=== PATIENT | male | born 1960 | race Caucasian/White ===

== ENCOUNTER 2020-05-06 18:08 | Inpatient (IN) | payer OTHER, SELFPAY ==
--- NOTE | 2020-05-06 18:51 | RAD REPORT ---
EXAM DESCRIPTION: RAD - Chest Single View - 05/06/2020 6:43 pm CLINICAL HISTORY: ams, history of DVT COMPARISON: None TECHNIQUE: AP portable chest image was obtained 05/06/2020 6:43 pm . FINDINGS: No peripheral mass or consolidation. Interstitial pattern is prominent with the baseline f or the patient unknown. Bilateral costophrenic angle blunting is present. Trachea is midline. Heart a nd vasculature are normal. No pneumothorax. No acute bony abnormality seen. No acute aortic findings suspected. IMPRESSION: Baseline chest exam shows a prominent interstitial pattern that could be patient's basel ine lung parenchymal pattern or a mild edema or mild viral infiltrate. No focal consolidation to suspect bacterial pneumonia. Small bilateral pleural effusions versus pleural scarring.
--- NOTE | 2020-05-06 18:54 | RAD REPORT ---
EXAM DESCRIPTION: CT - Head Brain Wo Cont - 05/06/2020 6:44 pm CLINICAL HISTORY: SLURRED SPEECH COMPARISON: No comparisons TECHNIQUE: Axial 5 mm thick images of the head were obtained without IV contrast. All CT scans are performed using dose optimization technique as appropriate and may include automated exposure control or mA/KV adjustment according to patient size. FINDINGS: No intracranial hemorrhage, mass, edema or shift of mid-line structures. No acute infarcti on changes seen. No cortical edema or sulcal effacement. A 3-4 centimeter area of encephalomalacia is present in the right subfrontal region. This could be from old trauma or an ischemic injury. No acut e component suspected. Ventricles are normal. No significant atrophy or diffuse chronic ischemic noble ges seen. Mastoid air cells and visualized portions of the paranasal sinuses are clear. No acute bony findings. 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
[2020-05-06 19:24] LABS: Protime INR 1.04
[2020-05-06 19:35] LABS: Absolute Lymphocytes (CBC) 1.1 K/uL (0.7-4.9); Basophils % 0.7 % (0-1.3); Hematocrit 33.6 % (39.6-49.0); Lymphocytes % 23.7 % (15.3-44.8); MPV 8.2 fL (7.6-11.3); RBC Red Blood Cell Count 3.76 M/uL (4.33-5.43)
[2020-05-06 19:36] LABS: ALT/SGPT 20 U/L (12-78); AST/SGOT 28 U/L (15-37); Albumin 3.1 g/dL (3.4-5.0); Alkaline Phosphatase 67 U/L (45-117); BUN Blood Urea Nitrogen 14 mg/dL (7-18); Bicarbonate 31 mmol/L (21-32); Bilirubin Direct 0.1 mg/dL (0-0.2); Bilirubin Total 0.5 mg/dL (0.2-1.0); Glucose Level 84 mg/dL (74-106); NT PRO-BNP 358 pg/mL (<125); Potassium 3.5 mmol/L (3.5-5.1); Protein, Total 6.6 g/dL (6.4-8.2); Sodium Level 143 mmol/L (136-145); Troponin (Emerg Dept Use Only) < 0.02 ng/mL (0.0-0.045)
--- NOTE | 2020-05-06 19:52 | EDPHYS ---
Physician Documentation [facility] Name: Johnatohn Bush Age: 59 yrs Sex: Male : 1960 Arrival Date: 05/06/2020 Time: 18:17 Bed 18 Private MD: ED Physician Charles Cheema HPI: 05/06 18:24 This 59 yrs old Male presents to ER via EMS with complaints of S/S of jmm Possible Stroke. 18:24 The patient's problem is reported as slurred speech. Onset: The symptoms/episode jmm began/occurred 1 week(s) ago. Duration: The episode is continuous. The symptoms are alleviated by nothing. The symptoms are aggravated by nothing. Associated signs and symptoms: Pertinent negatives: abdominal pain, chest pain. The patient has not experienced similar symptoms in the past. Patient complaints of left lower leg pain, with increased swelling over the past week. Patient states he was prescribed eliquis for previous DVT but unable to afford the past 2 months. . Historical: - Allergies: 18:26 No Known Allergies; jd3 - Home Meds: 18:26 Ambien Oral [Active]; Oxycodone HCl Oral [Active]; Xanax Oral [Active]; unknown blood jd3 pressure [Active]; - PMHx: 18:26 Hypertension; Anxiety; jd3 - Immunization history:: Adult Immunizations up to date. - Social history:: Smoking status: Patient reports the use of cigarette tobacco products, smokes one pack cigarettes per day. ROS: 18:24 Constitutional: Negative for fever, chills, and weight loss, Cardiovascular: Negative jmm for chest pain, palpitations, and edema, Respiratory: Negative for shortness of breath, cough, wheezing, and pleuritic chest pain. 18:24 MS/extremity: Positive for swelling. 18:24 Neuro: Positive for altered mental status. 18:24 All other systems are negative. Exam: 18:24 Radiologist reports: negative jmm 18:24 Constitutional: This is a well developed, well nourished patient who is awake, alert, and in no acute distress. Head/Face: atraumatic. Eyes: EOMI, no conjunctival erythema appreciated ENT: Moist Mucus Membranes Neck: Trachea midline, Supple Chest/axilla: Normal chest wall appearance and motion. Cardiovascular: Regular rate and rhythm. No edema appreciated Respiratory: Normal respirations, no respiratory distress appreciated Abdomen/GI: Non distended, soft Back: Normal ROM Skin: General appearance color normal 18:24 Musculoskeletal/extremity: DVT Exam: pain, that is moderate, of the left leg, swelling, that is marked, of the left leg, tenderness, that is marked, of the left leg. 18:24 Neuro: Orientation: is normal, Mentation: is normal, Memory: is normal, Cranial nerves: Speech is slurred. 18:24 Psych: Behavior/mood is pleasant, cooperative. Vital Signs: 18:26 BP 126 / 74; Pulse 88; Resp 18 S; Temp 97.9(TE); Pulse Ox 97% on R/A; Weight 102.97 kg jd3 (R); Height 5 ft. 11 in. (180.34 cm) (R); Pain 5/10; 18:26 Body Mass Index 31.66 (102.97 kg, 180.34 cm) jd3 NIH Stroke Scale Scores: 18:29 NIHSS Score: 1 jd3 MDM: 18:24 Patient medically screened. [facility] 19:49 Data reviewed: vital signs, nurses notes. Counseling: I had a detailed discussion with humble the patient and/or guardian regarding: the historical points, exam findings, and any diagnostic results supporting the discharge/admit diagnosis, lab results, radiology results, the need for further work-up and treatment in the hospital. ED course: I discussed the patient with Manny whom accepted the patient to Dr. Cheema's service. . 02 18:25 Order name: Basic Metabolic Panel; Complete Time: 19:39 [facility] 05/06 18:25 Order name: CBC with Diff; Complete Time: 19:39 [facility] 05/06 18:25 Order name: LFT's; Complete Time: 19:39 [facility] 05/06 18:25 Order name: Magnesium; Complete Time: 19:39 [facility] 05/06 18:25 Order name: NT PRO-BNP; Complete Time: 19:39 [facility] 05/06 18:25 Order name: Troponin (emerg Dept Use Only); Complete Time: 19:39 [facility] 05/06 18:26 Order name: Acetaminophen; Complete Time: 19:39 [facility] 05/06 18:26 Order name: ETOH Level; Complete Time: 19:39 [facility] 05/06 18:26 Order name: Ptt, Activated; Complete Time: 19:45 [facility] 05/06 18:26 Order name: Salicylate; Complete Time: 20:01 [facility] 05/06 18:26 Order name: Urine Drug Screen [facility] 05/06 19:13 Order name: Protime (+INR); Complete Time: 19:45 EDMS 05/06 19:15 Order name: COVID-19 : Document "Date of Symptom Onset" if Symptomatic. iw 05/06 18:25 Order name: XRAY Chest (1 view); Complete Time: 18:58 [facility] 05/06 18:25 Order name: EKG; Complete Time: 18:26 [facility] 05/06 18:25 Order name: Cardiac monitoring [facility] 05/06 18:25 Order name: EKG - Nurse/Tech [facility] 05/06 18:25 Order name: IV Saline Lock; Complete Time: 19:07 [facility] 05/06 18:25 Order name: Labs collected and sent; Complete Time: 19:07 [facility] 05/06 18:25 Order name: O2 Per Protocol; Complete Time: 18:29 [facility] 05/06 18:25 Order name: O2 Sat Monitoring; Complete Time: 18:29 [facility] 05/06 18:25 Order name: US Extremity Venous Unilateral Ltd; Complete Time: 20:16 [facility] 05/06 18:25 Order name: CT Head Brain wo Cont; Complete Time: 18:59 [facility] 05/06 20:31 Order name: Swallow Screen; Complete Time: 22:04 la1 05/06 21:57 Order name: SARS-COV-2 RT PCR EDMS Administered Medications: 21:24 Drug: Aspirin Chewable Tablet 324 mg Route: PO; ll2 23:25 Follow up: Response: No adverse reaction ll2 22:04 Drug: Lovenox 1 mg/kg Route: Sub-Q; Site: left lower abdomen; ll2 23:25 Follow up: Response: No adverse reaction ll2 Disposition: 05/07 07:03 Co-signature as Attending Physician, Charles Cheema MD. rn Disposition: 05/06/20 19:51 Hospitalization ordered by Noman Cheema for Observation. Preliminary diagnosis are Altered mental status, unspecified, Left Popliteal Deep Vein Thrombosis. - Bed requested for Telemetry/MedSurg (observation). - Status is Observation. ea - Condition is Stable. - Problem is new. - Symptoms are unchanged. NIH Stroke Scale - NIH Stroke Score Date: 05/06/2020 Time: 18:29 Total Score = 1 1a. Level of Consciousness (LOC) - 0(Alert) 1b. Level of Consciousness (LOC) (Year \\T\\ Age) - 0(Both) 1c. LOC Commands (Open \\T\\ Closes Eyes/Furnace Mechanic) - 0(Both) 2. Best Gaze (Lateral Gaze Paresis) - 0(Normal) 3. Visual Field Loss - 0(No visual loss) 4. Facial Palsy - 0(Normal) 5a. Left Arm: Motor (10-second hold) - 0(No drift) 5b. Right Arm: Motor (10-second hold) - 0(No drift) 6a. Left Leg: Motor (5-second hold - always test supine) - 0(No drift) 6b. Right Leg: Motor (5-second hold - always test supine) - 0(No drift) 7. Limb Ataxia (finger/nose \\T\\ heel/carr - test with eyes open) - 0(Absent) 8. Sensory Loss (pinprick arms/legs/face) - 0(Normal) 9. Best Language: Aphasia (description/naming/reading) - 0(No aphasia) 10. Dysarthria (speech clarity - read or repeat words) - 1(Mild to Moderate) 11. Extinction and Inattention (visual/tactile/auditory/spatial/personal) - 0(No abnormality) Initials: jd3 Signatures: Dispatcher [employer] EDKS Paxton Peters PA PA jmm Nieto, Roman, MD MD rn Radha, Manny, FILTER SCREEN CLEANER-C FILTER SCREEN CLEANER-Cla1 Dilcia Hu RN Xander Coello ea, RN RN jd3 Sol Kumar RN RN ll2 Romaine Darden tt3 Corrections: (The following items were deleted from the chart) 05/06 19:12 18:26 PROTIME (+INR)+COAG.LAB.BRZ ordered. [facility] EDKS 22:36 19:51 Hospitalization Ordered by Noman Cheema MD for Observation. Preliminary tt3 diagnosis is Altered mental status, unspecified; Left Popliteal Deep Vein Thrombosis. Bed requested for Telemetry/MedSurg (observation). Status is Observation. Condition is Stable. Problem is new. Symptoms are unchanged. alex 23:32 22:36 05/06/2020 19:51 Hospitalization Ordered by Noman Cheema MD for ea Observation. Preliminary diagnosis is Altered mental status, unspecified; Left Popliteal Deep Vein Thrombosis. Bed requested for Telemetry/MedSurg (observation). Status is Observation. Condition is Stable. Problem is new. Symptoms are unchanged. tt3
--- NOTE | 2020-05-06 19:52 | ER ---
Nurse's Notes [facility] Name: Johnathon Bush Age: 59 yrs Sex: Male : 1960 Arrival Date: 05/06/2020 Time: 18:17 Bed 18 Private MD: Diagnosis: Altered mental status, unspecified;Left Popliteal Deep Vein Thrombosis Presentation: 05/06 18:17 Chief complaint: EMS states: "the family called us for slurred speech and swelling left jd3 leg X 1 week. history of blood clots.". Coronavirus screen: At this time, the client does not indicate any symptoms associated with coronavirus-19. Ebola Screen: Patient negative for fever greater than or equal to 101.5 degrees Fahrenheit, and additional compatible Ebola Virus Disease symptoms. Initial Sepsis Screen: Does the patient meet any 2 criteria? No. Patient's initial sepsis screen is negative. Does the patient have a suspected source of infection? No. Patient's initial sepsis screen is negative. Risk Assessment: Do you want to hurt yourself or someone else? Patient reports no desire to harm self or others. Onset of symptoms was April 29, 2020. 18:17 Method Of Arrival: EMS: [facility] jd3 18:17 Acuity: ALEKSEY 2 jd3 18:24 Care prior to arrival: IV initiated. 18 GA, in the left antecubital area. jd3 Historical: - Allergies: 18:26 No Known Allergies; jd3 - Home Meds: 18:26 Ambien Oral [Active]; Oxycodone HCl Oral [Active]; Xanax Oral [Active]; unknown blood jd3 pressure [Active]; - PMHx: 18:26 Hypertension; Anxiety; jd3 - Immunization history:: Adult Immunizations up to date. - Social history:: Smoking status: Patient reports the use of cigarette tobacco products, smokes one pack cigarettes per day. Screenin:28 Abuse screen: Denies threats or abuse. Nutritional screening: No deficits noted. jd3 Tuberculosis screening: No symptoms or risk factors identified. Fall Risk Ambulatory Aid- None/Bed Rest/Nurse Assist (0 pts). Gait- Normal/Bed Rest/Wheelchair (0 pts) Mental Status- Oriented to own ability (0 pts). Total Del Castillo Fall Scale indicates No Risk (0-24 pts). 18:29 VAN Screening: Arm Drift: Patient shows no arm weakness. Patient is VAN negative. The jd3 patient has not been NPO before screening. The patient is currently on the following diet: regular diet. Assessment: 18:27 General: Appears in no apparent distress. comfortable, Behavior is calm, cooperative, jd3 appropriate for age. Pain: Complains of pain in head and left leg Quality of pain is described as aching, pressure. Neuro: Level of Consciousness is awake, alert, obeys commands, Oriented to person, place, time, situation, Data Migration Lead are equal bilaterally Moves all extremities. Full function Speech is slurred, Facial symmetry appears normal, Intact. Cardiovascular: Denies chest pain, Capillary refill < 3 seconds Patient's skin is warm and dry. Respiratory: Airway is patent Respiratory effort is even, unlabored, Respiratory pattern is regular, symmetrical, Denies cough, shortness of breath. GI: No signs and/or symptoms were reported involving the gastrointestinal system. : No signs and/or symptoms were reported regarding the genitourinary system. EENT: No signs and/or symptoms were reported regarding the EENT system. Derm: Skin is intact, Skin is dry, Skin is normal, Skin temperature is warm. Musculoskeletal: Circulation, motion, and sensation intact. Range of motion: intact in all extremities, Swelling present in left leg. 19:30 Reassessment: Patient and/or family updated on plan of care and expected duration. Pain ll2 level reassessed. Patient is alert, oriented x 3, equal unlabored respirations, skin warm/dry/pink. 20:35 Reassessment: No changes from previously documented assessment. Patient and/or family ll2 updated on plan of care and expected duration. Pain level reassessed. Patient is alert, oriented x 3, equal unlabored respirations, skin warm/dry/pink. 21:35 Reassessment: Patient and/or family updated on plan of care and expected duration. Pain ll2 level reassessed. Patient is alert, oriented x 3, equal unlabored respirations, skin warm/dry/pink. 22:58 Reassessment: report called to nguyễn. [facility] Vital Signs: 18:26 BP 126 / 74; Pulse 88; Resp 18 S; Temp 97.9(TE); Pulse Ox 97% on R/A; Weight 102.97 kg jd3 (R); Height 5 ft. 11 in. (180.34 cm) (R); Pain 5/10; 18:26 Body Mass Index 31.66 (102.97 kg, 180.34 cm) [facility] NIH Stroke Scale Scores: 18:29 NIHSS Score: 1 [facility] ED Course: 18:17 Patient arrived in ED. [facility] 18:23 Paxton Peters PA is PHCP. [facility] 18:23 Charles Cheema MD is Attending Physician. m 18:24 Triage completed. jd3 18:27 Arm band placed on. jd3 18:28 Patient has correct armband on for positive identification. Bed in low position. Call [facility] light in reach. Side rails up X2. carpentry teacher on. Pulse ox on. NIBP on. 18:43 XRAY Chest (1 view) In Process Unspecified. EDMS 18:44 CT Head Brain wo Cont In Process Unspecified. EDMS 19:31 Sol Kumar, JUAN DANIEL is Primary Nurse. ll2 19:50 Noman Cheema MD is Hospitalizing Provider. jmm 19:52 US Extremity Venous Unilateral Ltd In Process Unspecified. EDMS Administered Medications: 21:24 Drug: Aspirin Chewable Tablet 324 mg Route: PO; ll2 23:25 Follow up: Response: No adverse reaction ll2 22:04 Drug: Lovenox 1 mg/kg Route: Sub-Q; Site: left lower abdomen; ll2 23:25 Follow up: Response: No adverse reaction ll2 Outcome: 19:51 Decision to Hospitalize by Provider. jmm 23:32 Patient left the ED. NIH Stroke Scale - NIH Stroke Score Date: 05/06/2020 Time: 18:29 Total Score = 1 1a. Level of Consciousness (LOC) - 0(Alert) 1b. Level of Consciousness (LOC) (Year \\T\\ Age) - 0(Both) 1c. LOC Commands (Open \\T\\ Closes Eyes/Stock Clerk) - 0(Both) 2. Best Gaze (Lateral Gaze Paresis) - 0(Normal) 3. Visual Field Loss - 0(No visual loss) 4. Facial Palsy - 0(Normal) 5a. Left Arm: Motor (10-second hold) - 0(No drift) 5b. Right Arm: Motor (10-second hold) - 0(No drift) 6a. Left Leg: Motor (5-second hold - always test supine) - 0(No drift) 6b. Right Leg: Motor (5-second hold - always test supine) - 0(No drift) 7. Limb Ataxia (finger/nose \\T\\ heel/carr - test with eyes open) - 0(Absent) 8. Sensory Loss (pinprick arms/legs/face) - 0(Normal) 9. Best Language: Aphasia (description/naming/reading) - 0(No aphasia) 10. Dysarthria (speech clarity - read or repeat words) - 1(Mild to Moderate) 11. Extinction and Inattention (visual/tactile/auditory/spatial/personal) - 0(No abnormality) Initials: jd3 Signatures: Dispatcher [employer] Paxton Dunaway PA PA jmm Antunez, Elena, RN Xadner Coello ea, RN RN jd3 Sol Kumar RN RN ll2
[2020-05-06] MEDS ORDERED: ASPIRIN 81 MG CHEWABLE TABLET ONE ×3 (19:59→21:50)
--- NOTE | 2020-05-06 20:14 | RAD REPORT ---
EXAM DESCRIPTION: US - Extremity Venous Uni Ltd - 05/06/2020 7:52 pm CLINICAL HISTORY: SWELLING, leg pain COMPARISON: None. TECHNIQUE: Real-time sonographic evaluation of the left lower extremity deep venous system was perfo rmed. FINDINGS: Normal compressibility, flow augmentation, phasic flow and spontaneous flow are identified in the left lower extremity common femoral and proximal portions of the superficial femoral vein. Ec hogenic material with and loss of compression noted in the distal left femoral vein popliteal vein. P osterior tibial vein is patent. . Edema is seen in the subcutaneous fatty tissues of the lower left l eg. Preliminary findings were provided at the time of the study. IMPRESSION: Acute deep venous thrombosis in the left lower extremity involving the distal femoral ve in and popliteal vein.
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
[2020-05-06] MEDS ORDERED: ENOXAPARIN 100 MG/ML SYR SQ ONE (21:49)
[2020-05-06] MEDS ORDERED: ONDANSETRON 4 MG/2 ML VIAL IV PRN (23:57)
[2020-05-07 00:20] VITALS: BMI 31.6
[2020-05-07] MEDS: ENOXAPARIN 100 MG/ML SYR SQ SCH ×3 (00:30→20:28)
[2020-05-07] MEDS: NICOTINE 21 MG/PAT TD SCH (00:31)
[2020-05-07] MEDS: NA CHLORIDE 0.9% 1,000 ML IV SCH ×3 (00:32→14:31)
[2020-05-07] MEDS: MELATONIN 5 MG TABLET PO PRN ×2 (01:37→20:28)
[2020-05-07 05:58] LABS: Absolute Lymphocytes (CBC) 1.4 K/uL (0.7-4.9); Basophils % 0.8 % (0-1.3); Hematocrit 34.1 % (39.6-49.0); Lymphocytes % 34.2 % (15.3-44.8); RBC Red Blood Cell Count 3.77 M/uL (4.33-5.43)
[2020-05-07 06:33] LABS: Albumin 3.1 g/dL (3.4-5.0); Bilirubin Total 0.6 mg/dL (0.2-1.0); Magnesium 1.9 mg/dL (1.8-2.4); Potassium 3.3 mmol/L (3.5-5.1); Protein, Total 6.5 g/dL (6.4-8.2); Thyroid Stimulating Hormone 3.46 uIU/mL (0.360-3.740)
[2020-05-07] MEDS ORDERED: POTASSIUM 25 MEQ EFFERV TAB PO ONE (06:51)
[2020-05-07] MEDS: ASPIRIN EC 81 MG TAB PO SCH (09:39)
[2020-05-07] MEDS: FOLIC ACID 1 MG TABLET PO SCH (09:39)
[2020-05-07] MEDS ORDERED: OXYCODONE HCL 5 MG TAB PO PRN (12:28)
[2020-05-07 17:48] LABS: Barbiturates NEGATIVE (NEGATIVE); Benzodiazepines POSITIVE (NEGATIVE); Cocaine NEGATIVE (NEGATIVE); METHAMPHETAM POSITIVE (NEGATIVE); Methadone NEGATIVE (NEGATIVE); Opiates NEGATIVE (NEGATIVE); Phencyclidine NEGATIVE (NEGATIVE); THC Cannibis NEGATIVE (NEGATIVE)
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
[2020-05-07] MEDS: ATORVASTATIN 40 MG TAB PO SCH (20:27)
[2020-05-07] MEDS ORDERED: POTASSIUM CL SA 10 MEQ TAB PO ONE (21:00)
[2020-05-08 05:49] LABS: Absolute Lymphocytes (CBC) 1.2 K/uL (0.7-4.9); Basophils % 1.3 % (0-1.3); Hematocrit 35.9 % (39.6-49.0); Lymphocytes % 32.8 % (15.3-44.8)
[2020-05-08 06:02] LABS: Albumin 2.9 g/dL (3.4-5.0); Bilirubin Total 0.5 mg/dL (0.2-1.0); Magnesium 1.9 mg/dL (1.8-2.4); Potassium 3.6 mmol/L (3.5-5.1); Protein, Total 6.4 g/dL (6.4-8.2)
[2020-05-08] MEDS ORDERED: POTASSIUM CL SA 10 MEQ TAB PO ONE (06:19)
[2020-05-08] MEDS: ENOXAPARIN 100 MG/ML SYR SQ SCH ×2 (08:45→20:51)
[2020-05-08] MEDS: ASPIRIN EC 81 MG TAB PO SCH (08:46)
[2020-05-08] MEDS: FOLIC ACID 1 MG TABLET PO SCH (08:46)
[2020-05-08] MEDS: NICOTINE 21 MG/PAT TD SCH (08:46)
--- NOTE | 2020-05-08 08:56 | RAD REPORT ---
EXAM DESCRIPTION: MRI - Brain Wo Cont - 05/08/2020 8:18 am CLINICAL HISTORY: EVAL FOR STROKE, SLURRED SPEECH Headache, drowsiness, CVA symptomology COMPARISON: MRA Head Wo Cont dated 05/08/2020; Head Brain Wo Cont dated 05/06/2020 TECHNIQUE: Multi-sequence, multiplanar MR imaging of the brain was performed without contrast. FINDINGS: No intracranial hemorrhage, hydrocephalus or extra-axial fluid collections.Area of gliosis is seen in the right frontal lobe. A few small T2 and FLAIR hyperintensities in the periventricular region are present. No edema or shift of midline structures. No findings to suspect brain mass. DWI i s negative for acute CVA. Midline structures are normally formed. Mastoid air cells and paranasal sinuses are clear. IMPRESSION: Negative for acute CVA or other acute intracranial abnormality.
--- NOTE | 2020-05-08 08:58 | RAD REPORT ---
EXAM DESCRIPTION: MRI - MRA Head Wo Cont - 05/08/2020 8:06 am CLINICAL HISTORY: eval stroke, slurred speech CVA COMPARISON: Head Brain Wo Cont dated 05/06/2020 FINDINGS: 3D noncontrast [id number] MR angiography of the [place] was performed. No aneurysm, flow-limiting stenosis or vascular malformation is seen. Forward flow seen in codominant vertebral arteries. The visualized dural venous sinuses appear patent. IMPRESSION: No significant flow abnormality of the [place] is identified.
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
[2020-05-08] MEDS: ATORVASTATIN 40 MG TAB PO SCH (20:51)
[2020-05-09 06:00] LABS: Absolute Lymphocytes (CBC) 1.2 K/uL (0.7-4.9); Basophils % 0.7 % (0-1.3); Hematocrit 35.9 % (39.6-49.0); Lymphocytes % 33.2 % (15.3-44.8); MPV 8.2 fL (7.6-11.3); RBC Red Blood Cell Count 4.01 M/uL (4.33-5.43)
[2020-05-09 06:12] LABS: Magnesium 1.9 mg/dL (1.8-2.4); Potassium 3.8 mmol/L (3.5-5.1)
--- NOTE | 2020-05-09 09:38 | RAD REPORT ---
EXAM DESCRIPTION: CT - Chest For Pe Angio - 05/09/2020 9:16 am CLINICAL HISTORY: Hypoxia/shortness of breath COMPARISON: None. TECHNIQUE: Dynamically enhanced axial 3 mm thick images of the chest were obtained during administra tion of <100> mL Isovue 370 IV contrast. Coronal and oblique reconstruction images were generated and reviewed. Exam utilizes a protocol for optimal evaluation of pulmonary arterial tree. Maximum intensity projections 3D imaging was utilized All CT scans are performed using dose optimization technique as appropriate and may include automated exposure control or mA/KV adjustment according to patient size. FINDINGS: A pulmonary embolus is not seen. The proximal thoracic aorta AP diameter 4.5 centimeter A pleural effusion is not seen. A pericardial effusion is not seen. Left basilar atelectasis Compression deformities involve several thoracic vertebra IMPRESSION: Negative for a pulmonary embolism. 4.5 centimeter aneurysm proximal thoracic aorta
[2020-05-09] MEDS: FOLIC ACID 1 MG TABLET PO SCH (10:10)
[2020-05-09] MEDS: ENOXAPARIN 100 MG/ML SYR SQ SCH ×2 (10:10→20:40)
[2020-05-09] MEDS: ASPIRIN EC 81 MG TAB PO SCH (10:10)
[2020-05-09] MEDS: NICOTINE 21 MG/PAT TD SCH (10:10)
--- NOTE | 2020-05-09 12:19 | P.DS ---
Admission Date: 05/06/20 Discharge Date: 05/13/20 Primary Care Provider: unknown Disposition: ROUTINE DISCHARGE Discharge Condition: FAIR Reason for Admission: DVT, Slurred speech - Problems (1) Acute deep vein thrombosis (DVT) of lower extremity Current Visit: Yes Status: Acute (2) Acute respiratory failure with hypercapnia Current Visit: Yes Status: Acute (3) Metabolic encephalopathy Current Visit: Yes Status: Acute (4) Slurred speech Current Visit: Yes Status: Acute (5) ALS (amyotrophic lateral sclerosis) Current Visit: Yes Status: Acute (6) Cervical disc herniation Current Visit: Yes Status: Acute (7) Central stenosis of spinal canal Current Visit: Yes Status: Acute Brief History of Present Illness: 59-year-old gentleman with a history of DVT, hypertension, chronic pain, anxiety disorder presented to the emergency department with a complaint of increased swelling of the left lower extremity as well as slurred speech. Patient reports noncompliant with his Eliquis and stated he is not taking it for about 2 months. Patient is also on oxycodone for pain, Xanax for anxiety and Ambien as well. He had no neurologic deficits in the ED. His CT head did not show any Acute changes. Case was discussed with neurology was suspected patient is less speech is related to sedation from his medications and recommended all that his medications be adjusted. Patient was admitted for further management. Hospital Course: Patient admitted to the medical floor and started on Eliquis anticoagulation. Venous Doppler showed acute deep vein thrombosis in the left popliteal and femoral veins. MRI of the brain was also performed which did not show any acute CVA. MRA of the head and neck also unremarkable. His oxycodone and Xanax were discontinued. Patient's altered mental status eventually resolved. CTA thorax was performed which did not show any acute pulmonary embolism. 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 Patient at a point developed hypercapnia which had to be treated with BiPAP. As part of the workup for amyotrophic lateral sclerosis, cervical spine MRI was performed which demonstrated see 67 disk herniation with mild central spinal stenosis and mild left marybel-cord edema. MRI of cervical spine results discussed with with neurology-Dr. Tee and Neurosurgeon at [facility], Dr. Soares and both determined there is no urgent need for intervention and can follow up with Neurology and Neurosurgery as an outpatient. Patient and her daughter were informed of the MRI cervical spine finding and the need to follow up with neurosurgeon as an outpatient. They voiced unders tanding. Patient has been referred to [facility], and his medical records faxed over per his consent. Patient plan to follow with [facility] rather for further evaluation and management. Patient seen by physical therapy and he was able to ambulate several feet with a rolling walker. Swallow evaluation was performed, patient did not have gross dysphagia. He tolerated different diet consistencies and thin liquids with no significant spillage or aspiration during the MBS study. Patient tolerated mechanical soft diet and thin liquids the rest of the hospital stay. He has remained awake, his speech has improved though still slurred. He is considered stable for discharge. He is given refill for Eliquis. social worker palliative care states she has given him an Eliquis discount card to help him of afford Eliquis. He is also prescribed vitamin supplements including vitamin B12 and folic acid. He is prescribed oral prednisone to help with any ongoing inflammation. Vital Signs/Physical Exam: Temp Pulse Resp BP Pulse Ox 98.8 F 97 H 16 133/81 93 05/09/20 08:00 05/09/20 08:00 05/09/20 08:00 05/09/20 08:00 05/09/20 10:00 General: Alert, In no apparent distress, Oriented x3 Neck: Supple, No Thyromegaly Respiratory: Clear to auscultation bilaterally, Normal air movement Cardiovascular: No edema, Regular rate/rhythm, Normal S1 S2 Capillary refill: <2 Seconds Gastrointestinal: Normal bowel sounds, Soft and benign, Non-distended Musculoskeletal: Swelling (Left lower extremity) Integumentary: No rashes, No erythema Neurological: Normal strength at 5/5 x4 extr, Abnormal speech (Speech is mildly slurred.) Laboratory Data at Discharge: WBC 3.70 K/uL (4.3-10.9) L 05/09/20 05:26 Hgb 12.1 g/dL (13.6-17.9) L 05/09/20 05:26 Hct 35.9 % (39.6-49.0) L 05/09/20 05:26 Plt Count 178 K/uL (152-406) 05/09/20 05:26 PT 12.0 SECONDS (9.5-12.5) 05/06/20 18:26 INR 1.04 05/06/20 18:26 APTT 29.4 SECONDS (24.3-36.9) 05/06/20 18:26 Sodium 140 mmol/L (136-145) 05/09/20 05:26 Potassium 3.8 mmol/L (3.5-5.1) 05/09/20 05:26 BUN 11 mg/dL (7-18) 05/09/20 05:26 Creatinine 0.96 mg/dL (0.55-1.3) 05/09/20 05:26 Glucose 75 mg/dL (74-106) 05/09/20 05:26 Magnesium 1.9 mg/dL (1.8-2.4) 05/09/20 05:26 Total Bilirubin 0.5 mg/dL (0.2-1.0) 05/08/20 05:30 AST 20 U/L (15-37) 05/08/20 05:30 ALT 19 U/L (12-78) 05/08/20 05:30 Alkaline Phosphatase 60 U/L (45-117) 05/08/20 05:30 Home Medications: Apixaban [Eliquis] 5 mg PO BID #60 tablet 05/13/20 Cyanocobalamin (Vitamin B-12) [Vitamin B-12] 1,000 mcg SL DAILY #60 tab.subl 05/13/20 Folic Acid 1 mg PO DAILY #30 tablet 05/13/20 Melatonin 10 mg PO BEDTIME PRN PRN #30 tablet 05/13/20 predniSONE [Deltasone] 20 mg PO DAILY #7 tab 05/13/20 traMADol HCL [Ultram*] 50 mg PO Q6HP PRN #30 tab 05/13/20 New Medications: traMADol HCL [Ultram*] 50 mg PO Q6HP PRN #30 tab PRN Reason: back pain Apixaban [Eliquis] 5 mg PO BID #60 tablet Folic Acid 1 mg PO DAILY #30 tablet Melatonin 10 mg PO BEDTIME PRN PRN #30 tablet PRN Reason: Insomnia predniSONE [Deltasone] 20 mg PO DAILY #7 tab Cyanocobalamin (Vitamin B-12) [Vitamin B-12] 1,000 mcg SL DAILY #60 tab.subl Physician Discharge Instructions: Order: Referral to [facility], [address] Dr. Uday Lucero for evaluation consult for ALS. Diet: AHA Activity: Fall precautions Followup: Unknown,U [Primary Care Provider] - Jake Tee MD [ASSOCIATE-ACTIVE - CAN ADMIT] - (within 2 weeks) Time spent managing pt's care (in minutes): 45
[2020-05-09 14:06] LABS: Arterial Blood Carboxyhemoglob 1.3 % (0-1.5); Blood Gas Oxyhemoglobin 93.7 % (94-97); Blood O2 Saturation 95.8 % (92-98.5)
--- NOTE | 2020-05-09 16:09 | P.PN ---
Subjective Date of Service: 05/09/20 Primary Care Provider: unknown Chief Complaint: DVT, Slurred speech Patient with slurred and gurgled speech. It appears he is unable to clear his secretions. Patient was sitting by the edge of the bed when I saw him this morning. Nursing staff report patient has been drowsy but easily arousable. Physical Examination - Vital Signs Temperature: 98.5 F Blood Pressure: 96/53 Pulse: 76 Respirations: 16 Pulse Ox (%): 91 - Physical Exam General: In no apparent distress, Confused HEENT: Mucous membr. moist/pink Neck: Supple Respiratory: Diminished, Other (Bilateral upper airway transmitted sounds.) Cardiovascular: No edema, Regular rate/rhythm, Normal S1 S2 Gastrointestinal: Normal bowel sounds, Soft and benign, Non-distended, No tenderness Musculoskeletal: No swelling, No tenderness Integumentary: No rashes, No erythema Neurological: Other (No focal motor deficit.), Abnormal speech (Slurred and gurgled speech.) Assessment And Plan - Current Problems (Diagnosis) (1) Acute deep vein thrombosis (DVT) of lower extremity Current Visit: Yes Status: Acute (2) Slurred speech Current Visit: Yes Status: Acute (3) Metabolic encephalopathy Current Visit: Yes Status: Acute (4) Acute respiratory failure with hypercapnia Current Visit: Yes Status: Acute (5) Hypertension Current Visit: Yes Status: Acute Physician Review Additional Text: Physical Exam Gen: NAD, AAOx3 HEENT: normal conjunctiva, sclera anicteric, PERRL CV: RRR no murmur Pulm: CTAB, nonlabored on RA Abd: soft, NTND Ext: LLE with 2+ edema up to knee Neuro: slurred speech, AAOx3, 4/5 str at LLE, otherwise 5/5 Problem List: Acute DVT Left distal femoral vein and popliteal vein Slurred speech likely secondary to medications including oxycodone, Xanax, Ambien Hypertension Chronic pain Plan Acute DVT Left distal femoral vein and popliteal vein: Patient is supposed to be on Eliquis 5 mg p.o. b.i.d. but has been noncompliant for the past 2 months due to cost. Continue with full-dose Lovenox. Patient given and Eliquis card for discount. Slurred speech/history of CVA/polypharmacy/ bulbar ALS MRI negative for acute stroke however shows old prior stroke Patient seen by neurology-Dr. Tee. Per Dr. Tee, patient's symptoms is typical of bulbar ALS. Neurology recommended NPO. Patient will need PEG tube for feeding. Issue discussed with the patient. Patient referred the decision for feeding tube to the daughter. I called and discussed the issue with the daughter. As per daughter, family will discuss before they give consent for PEG tube placement. Continue to hold psychotropic medications. Patient will need referral to ALS Clinic at least at [facility] as an outpatient per neurology recommendation. Hypertension: Patient is NPO. Antihypertensives on hold due to soft blood pressure. Chronic pain: Oral medications on hold Acute respiratory failure with hypercapnea Likely secondary to ALS. Respiratory therapist to evaluate. Treat with BiPAP. Oxygen p.r.n.
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
[2020-05-09] MEDS: ATORVASTATIN 40 MG TAB PO SCH (20:41)
[2020-05-09] MEDS ORDERED: KCL 20 MEQ/100 mL IVPB 20 MEQ/100 ML BAG IV SCH (21:00)
[2020-05-10 05:44] LABS: Absolute Lymphocytes (CBC) 1.3 K/uL (0.7-4.9); Basophils % 1.7 % (0-1.3); Hematocrit 36.3 % (39.6-49.0); Lymphocytes % 39.8 % (15.3-44.8); MPV 8.3 fL (7.6-11.3); RBC Red Blood Cell Count 4.06 M/uL (4.33-5.43)
[2020-05-10 05:54] LABS: Potassium 4.2 mmol/L (3.5-5.1)
[2020-05-10] MEDS: ASPIRIN EC 81 MG TAB PO SCH (08:33)
[2020-05-10] MEDS: FOLIC ACID 1 MG TABLET PO SCH (08:34)
[2020-05-10] MEDS: ENOXAPARIN 100 MG/ML SYR SQ SCH ×2 (08:34→20:32)
[2020-05-10] MEDS: NICOTINE 21 MG/PAT TD SCH (08:34)
--- NOTE | 2020-05-10 11:36 | RAD REPORT ---
EXAM DESCRIPTION: RAD - Chest Single View - 05/10/2020 11:06 am CLINICAL HISTORY: Dobhoff placement COMPARISON: Chest exam May 06 TECHNIQUE: AP portable chest image was obtained 05/10/2020 11:06 am . FINDINGS: Feeding tube has been placed. Tip is in the body of the stomach. No abnormal bend or kink of the tubing. Prominent interstitial opacification is present similar to comparison. Heart size is normal. No medi astinal abnormality. Delete select IMPRESSION: Dobhoff feeding tube has been placed. Tip is in the body of the stomach.
--- NOTE | 2020-05-10 13:20 | P.PN ---
Subjective Date of Service: 05/10/20 Primary Care Provider: unknown Chief Complaint: DVT, Slurred speech Patient with slurred and gurgled speech. Patient seento be drooling at times. It appears he is unable to clear his secretions. Patient used BiPAP throughout last night. Physical Examination - Vital Signs Temperature: 97.5 F Blood Pressure: 106/71 Pulse: 82 Respirations: 16 Pulse Ox (%): 94 - Physical Exam General: Alert, In no apparent distress HEENT: Mucous membr. moist/pink Neck: Supple, JVD not distended Respiratory: Clear to auscultation bilaterally, Normal air movement Cardiovascular: No edema, Regular rate/rhythm, Normal S1 S2 Gastrointestinal: Soft and benign, Non-distended, No tenderness Musculoskeletal: No swelling, No tenderness Integumentary: No rashes, No erythema Neurological: Normal strength at 5/5 x4 extr, Cranial nerves 3-12 intact, Abnormal speech (Slurred.) Assessment And Plan - Current Problems (Diagnosis) (1) Acute deep vein thrombosis (DVT) of lower extremity Current Visit: Yes Status: Acute (2) Acute respiratory failure with hypercapnia Current Visit: Yes Status: Acute (3) Metabolic encephalopathy Current Visit: Yes Status: Acute (4) Slurred speech Current Visit: Yes Status: Acute (5) ALS (amyotrophic lateral sclerosis) Current Visit: Yes Status: Acute Physician Review Additional Text: Problem List: Acute DVT Left distal femoral vein and popliteal vein Slurred speech likely secondary to medications including oxycodone, Xanax, Ambien Hypertension Chronic pain Plan Acute DVT Left distal femoral vein and popliteal vein: Patient is supposed to be on Eliquis 5 mg p.o. b.i.d. but has been noncompliant for the past 2 months due to cost. Continue with full-dose Lovenox. Patient given an Eliquis discount card to use after discharge. Morphine p.r.n. for pain. Slurred speech/history of CVA/polypharmacy/ bulbar ALS MRI negative for acute stroke however shows old prior stroke Patient seen by neurology-Dr. Tee. Per Dr. Tee, patient's symptoms is typical of bulbar ALS. Neurology recommended NPO. Patient will need PEG tube for feeding. Issue discussed with the patient. Patient referred the decision for feeding tube to the daughter. Daughter called and updated on the plan of care. Dobhoff inserted for feeding. Patient to be seen by speech therapy for swallow evaluation. Daughter requested transfer to [facility] in order to have an EMG done. Transfer initiated. Continue to hold psychotropic medications. Hypertension: Patient is NPO. Antihypertensives on hold due to soft blood pres sure. Chronic pain: Oral medications on hold. Morphine IV p.r.n. for acute pain. Acute respiratory failure with hypercapnea Likely secondary to ALS. I suspect his drowsiness is secondary to CO2 retention BiPAP at bedtime and p.r.n. Oxygen p.r.n.
[2020-05-10] MEDS ORDERED: MORPHINE 2 MG/ML SYR IV PRN (13:21)
[2020-05-10] MEDS: D5NS KCL 20MEQ 20 MEQ/1,000 ML BAG IV SCH (20:06)
[2020-05-10] MEDS: ATORVASTATIN 40 MG TAB PO SCH (20:10)
[2020-05-11 05:37] LABS: Absolute Lymphocytes (CBC) 0.9 K/uL (0.7-4.9); Basophils % 1.2 % (0-1.3); Lymphocytes % 28.3 % (15.3-44.8); MPV 7.9 fL (7.6-11.3); RBC Red Blood Cell Count 4.48 M/uL (4.33-5.43)
[2020-05-11 06:06] LABS: ALT/SGPT 48 U/L (12-78); AST/SGOT 58 U/L (15-37); Albumin 3.3 g/dL (3.4-5.0); Alkaline Phosphatase 60 U/L (45-117); BUN Blood Urea Nitrogen 8 mg/dL (7-18); Bicarbonate 27 mmol/L (21-32); Bilirubin Total 0.7 mg/dL (0.2-1.0); Glucose Level 90 mg/dL (74-106); Potassium 3.9 mmol/L (3.5-5.1); Sodium Level 139 mmol/L (136-145)
[2020-05-11] MEDS: NICOTINE 21 MG/PAT TD SCH (08:02)
[2020-05-11] MEDS: FOLIC ACID 1 MG TABLET PO SCH (08:02)
[2020-05-11] MEDS: ENOXAPARIN 100 MG/ML SYR SQ SCH (08:02)
[2020-05-11] MEDS: ASPIRIN EC 81 MG TAB PO SCH (08:02)
--- NOTE | 2020-05-11 11:49 | RAD REPORT ---
EXAM DESCRIPTION: RAD - Barium Swallow Modified - 05/11/2020 11:15 am CLINICAL HISTORY: ALS- new diagnosis COMPARISON: No comparisons TECHNIQUE: The patient was given liquid, semi-solid and solid forms of barium. Lateral view fluorosc opic imaging was performed in conjunction with speech pathology service. FINDINGS: Laryngeal penetration cleared with thin liquid with large and small sips. Pharyngeal resid ue vallecular mild and mild posterior wall with all consistancies. Barium tablet cleared into lower esophagus without incident. No esophageal stasis seen. Total fluoroscopy time: 2 minutes and 34 seconds.
--- NOTE | 2020-05-11 16:14 | P.PN ---
Subjective Date of Service: 05/11/20 Primary Care Provider: unknown Chief Complaint: DVT, Slurred speech Patient is doing much better today. It appears his speech has improved. He passed a bedside swallow evaluation yesterday. No gross aspiration with MBS today. He is awake and alert and communicating meaningfully. Physical Examination - Vital Signs Temperature: 98.4 F Blood Pressure: 125/71 Pulse: 85 Respirations: 16 Pulse Ox (%): 97 - Physical Exam General: Alert, In no apparent distress, Oriented x3 HEENT: Mucous membr. moist/pink Neck: Supple, JVD not distended, No Thyromegaly Respiratory: Clear to auscultation bilaterally, Normal air movement Cardiovascular: No edema, Regular rate/rhythm, Normal S1 S2 Gastrointestinal: Normal bowel sounds, Soft and benign, Non-distended, No tenderness Musculoskeletal: No swelling, No tenderness Integumentary: No rashes Neurological: Normal strength at 5/5 x4 extr, Abnormal speech (Slurred speech but improved from before.) Assessment And Plan - Current Problems (Diagnosis) (1) Acute deep vein thrombosis (DVT) of lower extremity Current Visit: Yes Status: Acute (2) Acute respiratory failure with hypercapnia Current Visit: Yes Status: Acute (3) Metabolic encephalopathy Current Visit: Yes Status: Acute (4) Slurred speech Current Visit: Yes Status: Acute (5) ALS (amyotrophic lateral sclerosis) Current Visit: Yes Status: Acute Physician Review Additional Text: Problem List: Acute DVT Left distal femoral vein and popliteal vein Slurred speech likely secondary to medications including oxycodone, Xanax, Ambien Hypertension Chronic pain Plan Acute DVT Left distal femoral vein and popliteal vein: Patient is supposed to be on Eliquis 5 mg p.o. b.i.d. but has been noncompliant for the past 2 months due to cost. Patient given an Eliquis discount card to use after discharge. Morphine p.r.n. for pain. He will be discharged with Eliquis. Slurred speech/history of CVA/polypharmacy/ bulbar ALS MRI negative for acute stroke however shows old prior stroke Patient seen by neurology-Dr. Tee. Per Dr. Tee, patient's symptoms is typical of bulbar ALS. Patient did well with swallow evaluation. MBS with no gross aspiration. Mechanical soft diet recommended by speech therapy. Patient is tolerating it. Fluctuations and flares in neurologic symptoms is possible. Daughter requested transfer to [facility] in order to have an EMG done. Transfer was denied I contacted ALS Clinic at [facility]. Nursing staff informed to send patient medical records for evaluation. Patient will follow up with the ALS Clinic if he remain in [place]. Continue to hold psychotropic medications. Hypertension: Antihypertensives on hold due to soft blood pressure. Chronic pain: Tramadol p.r.n. for pain Acute respiratory failure with hypercapnea Likely secondary to ALS. I suspect his drowsiness is secondary to CO2 retention BiPAP at bedtime and p.r.n. Oxygen p.r.n. Patient has clinically improved. Possible discharge in a.m.
[2020-05-11] MEDS: D5NS KCL 20MEQ 20 MEQ/1,000 ML BAG IV SCH (16:15)
[2020-05-11] MEDS: MELATONIN 5 MG TABLET PO PRN (20:12)
[2020-05-11] MEDS: APIXABAN 5 MG TABLET PO SCH (20:12)
[2020-05-11] MEDS: TRAMADOL HCL 50 MG TAB PO PRN (20:13)
[2020-05-11] MEDS: ATORVASTATIN 40 MG TAB PO SCH (20:13)
[2020-05-12] MEDS: NICOTINE 21 MG/PAT TD SCH (08:24)
[2020-05-12] MEDS: FOLIC ACID 1 MG TABLET PO SCH (08:24)
[2020-05-12] MEDS: ASPIRIN EC 81 MG TAB PO SCH (08:24)
[2020-05-12] MEDS: APIXABAN 5 MG TABLET PO SCH ×2 (08:24→21:51)
[2020-05-12] MEDS: TRAMADOL HCL 50 MG TAB PO PRN (08:31)
[2020-05-12] MEDS: D5NS KCL 20MEQ 20 MEQ/1,000 ML BAG IV SCH (11:50)
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
--- NOTE | 2020-05-12 19:01 | P.PN ---
Subjective Date of Service: 05/12/20 Primary Care Provider: unknown Chief Complaint: DVT, Slurred speech Patient is doing well. He has been tolerating mechanical soft diet. He remained awake and alert. It appears his speech has improved but still has some slurred speech. Physical Examination - Vital Signs Temperature: 96.8 F Blood Pressure: 120/72 Pulse: 80 Respirations: 20 Pulse Ox (%): 94 - Physical Exam General: Alert, In no apparent distress, Oriented x3 HEENT: Mucous membr. moist/pink Neck: JVD not distended Respiratory: Clear to auscultation bilaterally, Normal air movement Cardiovascular: No edema, Regular rate/rhythm, Normal S1 S2 Gastrointestinal: Normal bowel sounds, Soft and benign, Non-distended, No tenderness Musculoskeletal: No swelling, No tenderness Integumentary: No rashes, No erythema Neurological: Normal strength at 5/5 x4 extr, Abnormal speech (Slurred speech) Assessment And Plan - Current Problems (Diagnosis) (1) Acute deep vein thrombosis (DVT) of lower extremity Current Visit: Yes Status: Acute (2) Acute respiratory failure with hypercapnia Current Visit: Yes Status: Acute (3) Metabolic encephalopathy Current Visit: Yes Status: Acute (4) Slurred speech Current Visit: Yes Status: Acute (5) ALS (amyotrophic lateral sclerosis) Current Visit: Yes Status: Acute Physician Review Additional Text: Problem List: Acute DVT Left distal femoral vein and popliteal vein Slurred speech likely secondary to medications including oxycodone, Xanax, Ambien Hypertension Chronic pain Plan Acute DVT Left distal femoral vein and popliteal vein: Patient is supposed to be on Eliquis 5 mg p.o. b.i.d. but has been noncompliant for the past 2 months due to cost. Patient given an Eliquis discount card to use after discharge. He will be discharged with Eliquis. Slurred speech/history of CVA/polypharmacy/ bulbar ALS MRI negative for acute stroke however shows old prior stroke Patient seen by neurology-Dr. Tee. Per Dr. Tee, patient's symptoms is typical of bulbar ALS. Patient did well with swallow evaluation. MBS with no gross aspiration. Mechanical soft diet recommended by speech therapy. Patient is tolerating it. Daughter requested transfer to [facility] in order to have an EMG done. Transfer was denied I contacted ALS Clinic at [facility]. Medical records sent over to ALS clinic at [facility] Patient will follow up with the ALS Clinic if he remain in [place]. Continue to hold psychotropic medications. Patient seen by Dr. Tee today who recommended MRI of the cervical spine to rule out cervical spine stenosis. MRI of the cervical spine ordered. He ambulated with Hypertension: Antihypertensives on hold due to soft blood pressure. Chronic pain: Tramadol p.r.n. for pain Acute respiratory failure with hypercapnea Likely secondary to ALS. I suspect his drowsiness is secondary to polypharmacy. He has been awake over the last few days. BiPAP p.r.n. Oxygen p.r.n. Patient has clinically improved. Possible discharge once MRI of the cervical spine has been completed. Patient would also need rehab as an outpatient.
--- NOTE | 2020-05-12 19:59 | RAD REPORT ---
EXAM DESCRIPTION: MRI - C Spine Wo Cont- 05/12/2020 7:17 pm CLINICAL HISTORY: ALS r/o cervical spine stenosis Neck pain COMPARISON: Brain Wo Cont dated 05/08/2020; MRA Head Wo Cont dated 05/08/2020 FINDINGS: Cervical vertebral bodies are normal in height and alignment. No suspicious marrow edema or marrow replacing process. No fracture or traumatic subluxation. The craniocervical junction is normal. C2-3 level: Small posterior osteophyte/ disc complex is present slightly attenuating the anterior sub arachnoid space. C3-4 level: Small posterior osteophyte/ disc complex is present mildly attenuating the subarachnoid s pace. Uncovertebral facet spurring is present greater on the right narrowing the right exit foramen. C4-5 level: 3 mm central disc protrusion is present attenuating the anterior subarachnoid space and c ontacting the anterior cord. No significant canal stenosis. C5-6 level: Posterior osteophyte/ disc complex is present asymmetric along the right paracentral cuco on. There is attenuation the anterior subarachnoid space and contact with the right marybel cord. Mild b ilateral exit foraminal narrowing is present, greater on the right. C6-7 level: Moderate central disc herniation is present measuring 5 mm in anterior-posterior dimensio n. This attenuates the anterior subarachnoid space contacts and deforms the cord along the right. The re is slight increased right marybel cord signal at this level. C7-T1 level: No significant findings. Slight increased linear cord signal right hemicord at C6-7. IMPRESSION: Moderate central disc herniation at C6-7 as detailed. This results in mild central canal narrowing and mild right marybel cord edema signal.
[2020-05-12] MEDS: MELATONIN 5 MG TABLET PO PRN (21:51)
[2020-05-12] MEDS: ATORVASTATIN 40 MG TAB PO SCH (21:51)
[2020-05-13] MEDS: D5NS KCL 20MEQ 20 MEQ/1,000 ML BAG IV SCH (07:00)
[2020-05-13] MEDS: ASPIRIN EC 81 MG TAB PO SCH (08:45)
[2020-05-13] MEDS: FOLIC ACID 1 MG TABLET PO SCH (08:46)
[2020-05-13] MEDS: APIXABAN 5 MG TABLET PO SCH (08:46)
[2020-05-13] MEDS: NICOTINE 21 MG/PAT TD SCH (08:46)
[2020-05-13] MEDS ORDERED: POTASSIUM CL SA 10 MEQ TAB PO ONE (09:00)
[2020-05-13] MEDS: TRAMADOL HCL 50 MG TAB PO PRN (11:15)
[2020-05-13 16:35] VITALS: O2SAT 96
[2020-05-13 17:00] VITALS: BP 137/90; TEMP 98.3
== END 2020-05-13 18:46 | disposition home or self-care (01) | DRG 299 ==
LOC: ER 18:08 → OBSVTOIN 20:32 → ERHOLD 20:32 → 2ND 23:03
PROVIDERS: ADMIT Emergency Medicine; ATTEND Internal Medicine
DX: I82.412 Acute embolism and thrombosis of left femoral vein (principal); J96.02 Acute respiratory failure with hypercapnia; G93.41 Metabolic encephalopathy; G12.21 Amyotrophic lateral sclerosis; I82.432 Acute embolism and thrombosis of left popliteal vein; G89.29 Other chronic pain; M50.20 Other cervical disc displacement, unspecified cervical region; M48.00 Spinal stenosis, site unspecified; I10 Essential (primary) hypertension; I25.10 Atherosclerotic heart disease of native coronary artery without angina pectoris; D70.9 Neutropenia, unspecified; F17.210 Nicotine dependence, cigarettes, uncomplicated; T42.6X5A Adverse effect of other antiepileptic and sedative-hypnotic drugs, initial encounter; T40.2X5A Adverse effect of other opioids, initial encounter; T42.4X5A Adverse effect of benzodiazepines, initial encounter; R47.81 Slurred speech; Z79.52 Long term (current) use of systemic steroids; Z79.899 Other long term (current) drug therapy; Z91.19 Patient's noncompliance with other medical treatment and regimen; Z86.73 Personal history of transient ischemic attack (TIA), and cerebral infarction without residual deficits; Z95.5 Presence of coronary angioplasty implant and graft; Z79.01 Long term (current) use of anticoagulants; Z20.822 Contact with and (suspected) exposure to COVID-19
CPT/HCPCS: 36415; 70450; 70544; 70551; 71045; 71275; 72141; 74230; 80048; 80053; 80076; 80307; 80320; 80329; 82805; 82947; 83735; 83880; 84132; 84439; 84443; 84484; 85025; 85610; 85730; 92610; 92611; 93005; 93971; 94660; 94760; 96372; 97116; 97161; 97530; 99284; J1650; J2270; J3480; J7030; Q9967; U0003